=== PATIENT | female | born 1955 | race Hispanic/Latino ===

== ENCOUNTER 2018-10-23 13:10 | Emergency (ER) | payer OTHER ==
--- NOTE | 2018-10-23 13:34 | Emergency Department Report ---
Blank Doc - Documentation Documentation: 62 y o female presents to ED cc of fever , chills, and body aches with left la ed flank pain x 3 days stated recent UTI treatment last week and currently taking bactrim denies cough, runy nose,n/v ua,labs ordered ACC eval
[2018-10-23 14:31] LABS: Bilirubin,Urine NEG (Negative); Blood,Urine LG (Negative); Color,Urine Yellow (Yellow); Mucus,Urine FEW /HPF
[2018-10-23 14:33] LABS: RBC,Urine > 182.0 /HPF (0.0-6.0)
[2018-10-23 14:45] LABS: Basophils % (Auto) 0.1 % (0.0-1.8); Hematocrit 44.6 % (30.3-42.9); Hemoglobin 15.4 gm/dl (10.1-14.3); Lymphocytes # (Auto) 0.5 K/mm3 (1.2-5.4); Lymphocytes % (Auto) 8.4 % (13.4-35.0); Mean Corpuscular HGB Conc 34 % (30-34); Mean Corpuscular Volume 91 fl (79-97); Monocytes # (Auto) 0.4 K/mm3 (0.0-0.8); Monocytes % (Auto) 7.4 % (0.0-7.3); Platelet Count 213 K/mm3 (140-440); Red Cell Distribution Width 13.7 % (13.2-15.2)
--- NOTE | 2018-10-23 15:01 | Emergency Department Report ---
ED General Adult HPI - General Chief complaint: Fever Stated complaint: FEVER/CHILLS/MUSCLE PAIN Time Seen by Provider: 10/23/18 13:31 Source: patient Mode of arrival: Ambulatory Limitations: No Limitations - History of Present Illness Initial comments: 62-year-old female presents to the emergency room complaining of fever, chills and generalized weakness. Patient reports that the body aches that started since 8 PM yesterday. Patient reports that she's recently been treated for urinary tract infection by her primary care provider Dr. Consuelo Houser. Patient reports that she is started on Cipro last week but it made her break out in a rash. She discontinued Cipro that and her primary care provider place her on and started Bactrim which she has not completed. Patient reports that she last took a dose of Susan aspirin about 1 PM today secondary to fever and shakes. Patient does admit to smoking cigarettes. Patient denies any other past medical history besides a colon resection. Onset/Timin -: week(s) Location: abdomen Radiation: periumbillical Severity scale (0 -10): 7 Quality: aching Consistency: constant Improves with: none Worsens with: none Associated Symptoms: fever/chills, headaches, nausea/vomiting, weakness Treatments Prior to Arrival: Aspirin (at 1 PM) - Related Data Previous Rx's Medication Instructions Recorded Last Taken Type Nitrofurantoin Williamson/M-Cryst 100 mg PO Q12HR #20 capsule 10/23/18 Unknown Rx [Macrobid CAP] Allergies Allergy/AdvReac Type Severity Reaction Status Date / Time No Known Allergies Allergy Verified 10/23/18 13:33 ED Review of Systems ROS: Stated complaint: FEVER/CHILLS/MUSCLE PAIN Other details as noted in HPI Constitutional: chills, fever, weakness Eyes: denies: eye pain, eye discharge, vision change ENT: denies: ear pain, throat pain Respiratory: denies: cough, shortness of breath, wheezing Gastrointestinal: abdominal pain, nausea Genitourinary: urgency, frequency, hematuria Musculoskeletal: back pain. denies: joint swelling, arthralgia Neurological: denies: headache, weakness, paresthesias Psychiatric: denies: anxiety, depression Hematological/Lymphatic: denies: easy bleeding, easy bruising ED Past Medical Hx - Past Medical History Previous Medical History?: No - Surgical History Past Surgical History?: Yes Hx Appendectomy: Yes Additional Surgical History: colon resection - Social History Smoking Status: Current Every Day Smoker Substance Use Type: None - Medications Home Medications: Home Medications Medication Instructions Recorded Confirmed Last Taken Type Nitrofurantoin Williamson/M-Cryst 100 mg PO Q12HR #20 capsule 10/23/18 Unknown Rx [Macrobid CAP] ED Physical Exam - General Limitations: No Limitations General appearance: alert, in no apparent distress - Head Head exam: Present: atraumatic, normocephalic - Eye Eye exam: Present: normal appearance - ENT ENT exam: Present: mucous membranes moist - Neck Neck exam: Present: normal inspection - Respiratory Respiratory exam: Present: normal lung sounds bilaterally. Absent: respiratory distress - Cardiovascular Cardiovascular Exam: Present: tachycardia - GI/Abdominal GI/Abdominal exam: Present: soft, normal bowel sounds - Neurological Exam Neurological exam: Present: alert, oriented X3 - Psychiatric Psychiatric exam: Present: normal affect, normal mood - Skin Skin exam: Present: warm, dry, intact, normal color. Absent: rash ED Course Vital Signs 10/23/18 13:31 Temperature 98.8 F Pulse Rate 100 H Respiratory 16 Rate Blood Pressure 145/60 O2 Sat by Pulse 95 Oximetry - Reevaluation(s) Reevaluation #1: 10/23/18 18:21 Patient reports that she feels much better and is ready to be discharged home. ED Medical Decision Making - Lab Data Result diagrams: 10/23/18 14:17 10/23/18 14:17 - Radiology Data Radiology results: report reviewed Patient: EM ABAD MR#: [id number] 48 : 1955 Acct:[id number] Age/Sex: 62 / F ADM Date: 10/23/18 Loc: ED Attending Dr: Ordering Physician: PRITI LOCKHART Date of Service: 10/23/18 Procedure(s): CT abdomen pelvis w con Accession Number(s): [id number] cc: PRITI LOCKHART PROCEDURE: CT ABDOMEN PELVIS W CON TECHNIQUE: Computerized axial tomography of the abdomen and pelvis was performed after the IV injection of iodinated nonionic contrast. CT DOSE LENGTH PRODUCT: 3280.9 mGycm HISTORY: abd pain, uti FINDINGS: Contrast-enhanced CT of the abdomen and pelvis was performed. The heart is normal in size. There is bibasilar linear atelectasis. ABDOMEN: There is fatty infiltration of the liver without focal hepatic lesion. The liver is enlarged extending for 24.1 cm along the long axis of the body. The spleen is top normal in size at 11.7 x 4.0 cm. There is a low-density left adrenal nodule consistent with adenoma 0.9 cm. There is a low-density right adrenal nodule also likely adenoma, 1.0 cm. No focal pancreatic lesion is seen. There is are small bilateral renal cysts. There is a 0.2 cm left nonobstructing renal calculus. No ureteral calculus or hydronephrosis is seen. There is aortic atherosclerotic change without aneurysmal dilation of the aorta. There has been a partial right hemicolectomy. Pelvis: There is no evidence of diverticulitis. There is no adnexal mass. The uterus is within normal limits. There is no free air. The urinary bladder does not appear thick walled with there is trace stranding anterior to the bladder, axial images 159-160, sagittal image 204 which could represent cystitis There is a vacuum disc at L5-S1. There is moderate right foraminal narrowing with impingement of the exiting right L5 nerve root due to endplate remodeling, sagittal image 226. IMPRESSION: ABDOMEN: Fatty infiltration of the liver and hepatomegaly Pelvis: Trace stranding around urinary bladder. Cystitis is not excluded Impingement of exiting right L5 nerve root. This document is electronically signed by Rocky Handy MD., Oct 23 2018 05:37:40 PM ET Transcribed By: SHERRY Dictated By: ROCKY HANDY MD Electronically Authenticated By: ROCKY HANDY MD Signed Date/Time: 10/23/18 1739 DD/ 51 TD/TT: 10/23/18 165 - Medical Decision Making 62-year-old female comes in for weakness for one week. Patient was given IV fluids and IV antibiotics will be discharged on by mouth antibiotics. Critical care attestation.: If time is entered above; I have spent that time in minutes in the direct care of this critically ill patient, excluding procedure time. ED Disposition Clinical Impression: Pyelonephritis, acute Disposition: DC-01 TO HOME OR SELFCARE Is pt being admited?: No Does the pt Need Aspirin: No Condition: Stable Instructions: Acute Pyelonephritis (ED) Additional Instructions: Complete antibiotics as prescribed. Follow up with Dr. Houser. Continue with fluids. Prescriptions: Nitrofurantoin Williamson/M-Cryst [Macrobid CAP] 100 mg PO Q12HR #20 capsule [facility] [Referring] - 3-5 Days Forms: Work/School Release Form(ED)
[2018-10-23 15:02] LABS: BUN/Creatinine Ratio 23; Blood Urea Nitrogen 18 mg/dL (7-17); Calcium 9.2 mg/dL (8.4-10.2); Hemolysis Index 11
[2018-10-23] MEDS ORDERED: ROCEPHIN/NS 1 GM/50 ML 1 GM/50 ML BAG IV ONE (15:16)
[2018-10-23] MEDS ORDERED: NACL 0.9% 1000 ML 1,000 ML IV ONE (15:16)
[2018-10-23] MEDS ORDERED: ZOFRAN IV ONE (15:16)
--- NOTE | 2018-10-23 17:39 | Cat Scan Report ---
PROCEDURE: CT ABDOMEN PELVIS W CON TECHNIQUE: Computerized axial tomography of the abdomen and pelvis was performed after the IV inject ion of iodinated nonionic contrast. CT DOSE LENGTH PRODUCT: 3280.9 mGycm HISTORY: abd pain, uti FINDINGS: Contrast-enhanced CT of the abdomen and pelvis was performed. The heart is normal in size. There is bibasilar linear atelectasis. ABDOMEN: There is fatty infiltration of the liver without focal hepatic lesion. The liver is enlarged extendin g for 24.1 cm along the long axis of the body. The spleen is top normal in size at 11.7 x 4.0 cm. There is a low-density left adrenal nodule consistent with adenoma 0.9 cm. There is a low-density rig ht adrenal nodule also likely adenoma, 1.0 cm. No focal pancreatic lesion is seen. There is are small bilateral renal cysts. There is a 0.2 cm left nonobstructing renal calculus. No ur eteral calculus or hydronephrosis is seen. There is aortic atherosclerotic change without aneurysmal dilation of the aorta. There has been a partial right hemicolectomy. Pelvis: There is no evidence of diverticulitis. There is no adnexal mass. The uterus is within normal limits. There is no free air. The urinary bladder does not appear thick walled with there is trace stranding anterior to the bladde r, axial images 159-160, sagittal image 204 which could represent cystitis There is a vacuum disc at L5-S1. There is moderate right foraminal narrowing with impingement of the exiting right L5 nerve root due to endplate remodeling, sagittal image 226. IMPRESSION: ABDOMEN: Fatty infiltration of the liver and hepatomegaly Pelvis: Trace stranding around urinary bladder. Cystitis is not excluded Impingement of exiting right L5 nerve root. This document is electronically signed by Rocky Handy MD., Oct 23 2018 05:37:40 PM ET
[2018-10-23 18:11] VITALS: BP 124/56
== END 2018-10-23 18:12 | disposition home or self-care (01) ==
LOC: ED 13:10
DX: N10 Acute pyelonephritis (principal); F17.200 Nicotine dependence, unspecified, uncomplicated; Z90.89 Acquired absence of other organs; Z98.890 Other specified postprocedural states
CPT/HCPCS: 36415; 74177; 80048; 81001; 82140; 85025; 87040; 87086; 96365; 96375; 99284; J0696; J2405; J7030; Q9967